=== PATIENT | female | born 1945 | race African-American/Black ===

== ENCOUNTER 2019-09-30 11:07 | Inpatient (IN) ==
[2019-09-30 12:24] LABS: Basophils % 0.5 % (0.0-0.8); Eosinophils % 0.2 % (0.00-10.9); Hematocrit 41.9 VOL% (35.7-47.0); Hemoglobin 13.7 GM/DL (12.0-16.0); Immature Granulocytes % 0.5 %; Immature Granulocytes Absolute 0.03 #; Mean Corpuscular HGB Conc 32.7 GM/DL (32-36); Mean Corpuscular Volume 78.2 FL (87-102); Mean Platelet Volume 11.3 FL (9.6-12.0); Monocytes % 17.7 % (1.7-12.7); Neutrophils % 47.1 % (38.7-73.9); Platelet Count 251 T/CUMM (130-400); Red Blood Count 5.36 MC/CUMM (3.8-5.5); Red Cell Distribution Width 15.1 % (9.3-17.3); White Blood Count 5.9 T/CUMM (4-12)
[2019-09-30 12:31] LABS: Apearance,Urine CLEAR (Clear); Blood, Urine Small mg/dL (Negative); Glucose,Urine (UA) Negative (Negative); Ketones,Urine 5 mg/dL (Negative); Mucus,Urine Occasional /LPF (Occasional); Nitrite,Urine Negative (Negative); Protein,Urine 30 MG/DL; RBC,Urine 1 /HPF (0-4); Squamous Epithelial Cell,Urine Occasional /HPF (0-10); Urine Color Amber (Yellow); Urine Specific Gravity 1.013 (1.001-1.035); WBC,Urine <1 /HPF (0-6)
[2019-09-30 12:33] LABS: Bilirubin,Urine Moderate mg/dL (Negative)
[2019-09-30 12:34] LABS: PT Patient Result 11.2 SECS (9.8-11.9); Partial Thromboplastin Time 34.7 SECS (23.9-33.8)
[2019-09-30 12:46] LABS: Lymphocytes 34 % (20-55); Segmented Neutrophils 48 % (50-85); Total Cells Counted 100
[2019-09-30 12:47] LABS: Atypical Lymphocytes Few; Hypochromasia Slight; Macrocytosis Slight; Platelet Estimate Normal; Smudge Cells Few; Target Cells Few
[2019-09-30 12:55] LABS: Albumin 3.2 G/DL (3.4-5.0); Bilirubin,Total 8.9 MG/DL (0.2-1.0); Calcium 9.6 MG/DL (8.5-10.1); Osmolality,Calculated 267.7 MOS/KG (273-304); Total Protein 7.6 G/DL (6.4-8.3)
[2019-09-30 13:32] LABS: Hepatitis B Core IgM Quant 0.13 Index; Hepatitis B Surface Ag Quant 0.31 Index; Hepatitis B Surface Ag Result Negative (Negative); Hepatitis C Virus Ab Quant 0.12 Index; Hepatitis C Virus Ab Result Negative (Negative)
[2019-09-30] MEDS ORDERED: GLUCAGON 1 MG VIAL IM PRN ×2 (15:56→16:09)
[2019-09-30] MEDS ORDERED: DEXTROSE 50% 25 GM/50 ML VIAL IV PRN ×2 (15:56→16:09)
[2019-09-30] MEDS: ENOXAPARIN 40 MG/0.4 ML SYRINGE SUBCUT SCH (17:33)
[2019-09-30] MEDS: DEXTROSE 5% NACL 0.45% 1,000 ML IV SCH (17:34)
[2019-09-30] MEDS: INSULIN LISPRO 100 UNIT/ML SUBCUT SCH ×2 (17:35→20:25)
[2019-10-01] MEDS: DEXTROSE 5% NACL 0.45% 1,000 ML IV SCH ×3 (01:16→17:06)
[2019-10-01 05:15] LABS: Basophils % 0.6 % (0.0-0.8); Eosinophils % 0.8 % (0.00-10.9); Hematocrit 37.3 VOL% (35.7-47.0); Hemoglobin 12.1 GM/DL (12.0-16.0); Immature Granulocytes % 0.6 %; Immature Granulocytes Absolute 0.03 #; Lymphocytes # 1.7 10*3/uL (1.4-4.0); Lymphocytes % 36.1 % (21.3-54.2); Mean Corpuscular HGB Conc 32.4 GM/DL (32-36); Mean Corpuscular Volume 78.7 FL (87-102); Mean Platelet Volume 12.2 FL (9.6-12.0); Neutrophils % 43.9 % (38.7-73.9); Platelet Count 242 T/CUMM (130-400); Red Blood Count 4.74 MC/CUMM (3.8-5.5); Red Cell Distribution Width 15.3 % (9.3-17.3); White Blood Count 4.8 T/CUMM (4-12)
[2019-10-01 05:37] LABS: Atypical Lymphocytes Few; Eosinophils 1 % (0-10); Hypochromasia 1+; Lymphocytes 36 % (20-55); Ovalocytes Slight; Platelet Estimate Adequate; Segmented Neutrophils 45 % (50-85); Total Cells Counted 100
[2019-10-01 05:39] LABS: Albumin 2.6 G/DL (3.4-5.0); Bilirubin,Total 8.2 MG/DL (0.2-1.0); Calcium 8.7 MG/DL (8.5-10.1); Osmolality,Calculated 265.7 MOS/KG (273-304); Total Protein 6.3 G/DL (6.4-8.3)
[2019-10-01] MEDS: ENOXAPARIN 40 MG/0.4 ML SYRINGE SUBCUT SCH (08:04)
[2019-10-01] MEDS: INSULIN LISPRO 100 UNIT/ML SUBCUT SCH ×4 (08:47→20:41)
[2019-10-01] MEDS ORDERED: diphenhydrAMINE CAP 25 MG CAPSULE PO PRN (12:27)
[2019-10-01] MEDS: MELATONIN 3 MG TABLET PO PRN (23:40)
[2019-10-02] MEDS: DEXTROSE 5% NACL 0.45% 1,000 ML IV SCH ×3 (01:20→17:15)
[2019-10-02] MEDS: INSULIN LISPRO 100 UNIT/ML SUBCUT SCH ×4 (08:33→20:10)
[2019-10-02] MEDS: ENOXAPARIN 40 MG/0.4 ML SYRINGE SUBCUT SCH (10:15)
[2019-10-02 11:25] LABS: Albumin 2.3 G/DL (3.4-5.0); Bilirubin,Total 10.3 MG/DL (0.2-1.0); Calcium 8.8 MG/DL (8.5-10.1); Osmolality,Calculated 264.8 MOS/KG (273-304); Total Protein 6.1 G/DL (6.4-8.3)
[2019-10-02] MEDS: diphenhydrAMINE CAP 25 MG CAPSULE PO SCH ×2 (15:53→20:10)
[2019-10-02] MEDS: MELATONIN 3 MG TABLET PO PRN (20:10)
[2019-10-03] MEDS: DEXTROSE 5% NACL 0.45% 1,000 ML IV SCH (03:03)
[2019-10-03] MEDS: diphenhydrAMINE CAP 25 MG CAPSULE PO SCH ×3 (03:58→15:18)
[2019-10-03] MEDS: INSULIN LISPRO 100 UNIT/ML SUBCUT SCH ×2 (08:24→12:14)
[2019-10-03] MEDS: ENOXAPARIN 40 MG/0.4 ML SYRINGE SUBCUT SCH (09:13)
[2019-10-03 13:21] VITALS: BP 125/69
== END 2019-10-03 16:43 | disposition home or self-care (01) | DRG 443 ==
LOC: N.ED 11:07 → N.EDINP 15:56 → N.2W 17:20
PROVIDERS: ADMIT Internal Medicine; ATTEND Internal Medicine